=== PATIENT | female | born 1945 | race Caucasian/White ===

== ENCOUNTER 2020-07-08 08:07 | Observation (INO) | payer MEDICARE ==
[~2020-07-08] VITALS: Ht 167.6 cm; Wt 69.3 kg
[2020-07-08] MEDS ORDERED: SODIUM CHLORIDE 0.9% 1,000 ML IV SCH (08:21)
[2020-07-08] MEDS ORDERED: PLEASE ENTER HEIGHT AND WEIGHT MC SCH (08:30)
[2020-07-08 08:34] VITALS: BP 128/83
[2020-07-08] MEDS ORDERED: ROSU20TA2 PO (08:40)
[2020-07-08] MEDS ORDERED: APIX5TAB PO (08:40)
[2020-07-08 09:04] LABS: MEAN CORPUSCULAR HEMOGLOBIN 28.3 pg (27.0-34.8); MEAN CORPUSCULAR HGB CONC 32.2 g/dL (32.4-35.8); MEAN CORPUSCULAR VOLUME 87.8 fL (80-100); MEAN PLATELET VOLUME 12.4 fL (7.4-10.4); PLATELET COUNT 229 x10^3/uL (130-400); RED BLOOD COUNT 4.52 x10^6/uL (3.82-5.3); RED CELL DISTRIBUTION WIDTH 14.4 % (9.6-15.2)
[2020-07-08 09:13] LABS: ANION GAP 6 mmol/L (5-15); CALCIUM 9.6 mg/dL (8.5-10.1); CHLORIDE 110 mmol/L (98-107); CREATININE 0.89 mg/dL (0.55-1.02)
[2020-07-08 09:29] LABS: BASOPHILS % (AUTO) 0 % (0-1); EOSINOPHILS # (AUTO) 0.81 x10^3/uL (0-0.4); EOSINOPHILS % (AUTO) 6 % (1-7); LYMPHOCYTES # (AUTO) 6.16 x10^3/uL (1-3.4); LYMPHOCYTES % (AUTO) 45 % (22-44); MD SCAN; MONOCYTES # (AUTO) 0.77 x10^3/uL (0.2-0.8); MONOCYTES % (AUTO) 6 % (2-9); NEUTROPHILS # (AUTO) 6.05 x10^3/uL (1.8-6.8); NEUTROPHILS % (AUTO) 44 % (42-75)
[2020-07-08] MEDS ORDERED: LIDOCAINE 2%, 20ML ONE (13:46)
[2020-07-08] MEDS ORDERED: FENTANYL PF 250 MCG/5ML ONE (14:17)
[2020-07-08] MEDS ORDERED: MIDAZOLAM 1 MG/ML, 2ML ONE (14:17)
[2020-07-08] MEDS ORDERED: PROPOFOL 10 MG/ML, 20ML ONE (14:19)
[2020-07-08] MEDS ORDERED: ROCURONIUM 10MG/ML,5ML ONE (14:19)
[2020-07-08] MEDS ORDERED: DEXAMETHASONE 4 MG/ML, 1ML ONE ×2 (14:19)
[2020-07-08] MEDS ORDERED: SUCCINYLCHOLINE 20 MG/ML, 10ML ONE (14:19)
[2020-07-08] MEDS ORDERED: APIXABAN 5 MG TABLET ONE ×2 (15:00→17:22)
[2020-07-08] MEDS ORDERED: HEPARIN 1,000 UNITS/ML, 10ML ONE ×2 (16:09)
[2020-07-08] MEDS ORDERED: ONDANSETRON 2MG/ML, 2ML ONE (16:33)
[2020-07-08] MEDS ORDERED: EPHEDRINE 50 MG/ML, 1ML IVPush PRN (17:00)
[2020-07-08] MEDS ORDERED: ONDANSETRON 2MG/ML, 2ML IVPush PRN (17:00)
[2020-07-08] MEDS ORDERED: MEPERIDINE/PF 25MG/0.5ML IVPush PRN (17:00)
[2020-07-08] MEDS ORDERED: FENTANYL PF 100 MCG/2ML IV PRN (17:00)
[2020-07-08] MEDS ORDERED: HYDROmorphone 1 MG/ML, 1ML INJ IVPush PRN (17:00)
[2020-07-08] MEDS ORDERED: ACETAMINOPHEN 325 MG TABLET PO PRN (17:00)
[2020-07-08] MEDS ORDERED: LABETALOL 5MG/ML, 20ML IV PRN (17:00)
[2020-07-08] MEDS ORDERED: PROMETHAZINE 12.5 MG SUPP PR PRN (17:00)
[2020-07-08] MEDS ORDERED: hydrALAzine 20 MG/ML, 1ML IV PRN (17:00)
[2020-07-08] MEDS ORDERED: PROMETHAZINE 25 MG/ML, 1ML IVPush PRN (17:00)
[2020-07-08] MEDS ORDERED: MIDAZOLAM 1 MG/ML, 2ML IV PRN (17:00)
[2020-07-08] MEDS ORDERED: ALBUTEROL SULFATE 2.5 MG/3 ML NPPB PRN (17:00)
[2020-07-08] MEDS ORDERED: DIPHENHYDRAMINE 50 MG/ML, 1ML IVPush PRN (17:00)
[2020-07-08] MEDS ORDERED: DIAZEPAM 5 MG/ML, 2ML IVPush PRN (17:00)
[2020-07-08] MEDS ORDERED: OXYcodone 5 MG/5 ML ORAL.SOL UDC PO PRN (17:00)
[2020-07-08] MEDS: APIXABAN 5 MG TABLET PO SCH (17:27)
[2020-07-08 20:27] VITALS: BP 104/66
[2020-07-08] MEDS: COLCHICINE 0.6 MG CAPSULE PO SCH (20:35)
[2020-07-08] MEDS: ATORVASTATIN 80 MG TABLET PO SCH ×2 (20:35→20:47)
[2020-07-08] MEDS ORDERED: APIXABAN 5 MG TABLET PO ONE (21:00)
[2020-07-09 01:11] VITALS: BP 93/56
[2020-07-09 06:25] VITALS: BP 108/68
[2020-07-09] MEDS ORDERED: COLC0.6C3 PO (07:58)
[2020-07-09] MEDS: APIXABAN 5 MG TABLET PO SCH (09:49)
[2020-07-09] MEDS: COLCHICINE 0.6 MG CAPSULE PO SCH (09:49)
== END 2020-07-09 14:24 | disposition home or self-care (01) ==
LOC: CACL 08:07 → ORIP 16:44 → 5SO 18:33
PROVIDERS: ADMIT Internal Medicine Cardiovascular Disease; ATTEND Internal Medicine Cardiovascular Disease
DX: I48.91 Unspecified atrial fibrillation (principal); I48.4 Atypical atrial flutter; I25.10 Atherosclerotic heart disease of native coronary artery without angina pectoris; I25.2 Old myocardial infarction; E78.5 Hyperlipidemia, unspecified; Z86.73 Personal history of transient ischemic attack (TIA), and cerebral infarction without residual deficits; Z79.899 Other long term (current) drug therapy; Z79.01 Long term (current) use of anticoagulants
CPT/HCPCS: 36415; 71046; 80048; 85025; 85347; 93306; 93462; 93613; 93621; 93653; 93655; 93662; C1730; C1732; C1759; C1766; C1769; C1893; C1894; G0378; J0330; J1100; J1644; J2250; J2405; J2704; J3010; J3490